=== PATIENT | male | born 1990 | race African-American/Black ===

== ENCOUNTER 2024-11-18 14:54 | Emergency (ER) | payer OTHER, SELFPAY ==
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
[2024-11-18 15:21] VITALS: BP 125/82; PULSE 62; RESP 20; TEMP 37.3; O2SAT 100
== END 2024-11-18 15:52 | disposition home or self-care (01) ==
PROVIDERS: Emergency Provider Nurse Practitioner Family
DX: M54.50 Low back pain, unspecified (principal); V43.52XA Car driver injured in collision with other type car in traffic accident, initial encounter
CPT/HCPCS: 72100; 99203; G0463